=== PATIENT | female | born 1955 | race Two or more races ===

== ENCOUNTER → 2021-06-12 | Day surgery (SDC) | payer MEDICAID ==
[~2021-06-12] VITALS: Ht 167.6 cm; Wt 63.5 kg
[~2021-06-12] MED LIST: AMLO5TAB88 PO; ANAS1TAB49 PO; ASPI-1497 PO; BALANCED SALT IRRIG SOLN 15ML ONE; BALANCED SALT IRRIG SOLN COMB1 500ML OP NR; CIPROFLOXACIN 0.3% OPHTH SOLN 2.5ML ONE; CYCLOPENTOLATE HCL 1% OPHTH DROPS 2ML LEFTEYE ONE; CYCLOPENTOLATE HCL 1% OPHTH DROPS 2ML ONE; ERTU5TAB PO; FENTANYL CITRATE/PF 50MCG/ML 2ML VIAL ONE; FURO20TA4 PO; HYALURONATE SODIUM 10 MG/ML 0.55ML SYRINGE IO ONE; KETOROLAC 30MG/ML VIAL ONE; LIDOCAINE HCL/PF 2% 20 MG/ML 10ML VIAL ONE; METF-415 PO; MIDAZOLAM HCL 2 MG/2 ML VIAL ONE; NEO/POLYMYX B SULF/DEXAMETH OPHTH OINT 3.5GM ONE; PHENYLEPHRINE HCL 10% OPHTH DROPS 5ML LEFTEYE ONE; PHENYLEPHRINE HCL 10% OPHTH DROPS 5ML ONE; PREDNISOLONE ACETATE 1% OPHTH DROPS 5ML ONE; SIMV-43 PO; TETRACAINE 0.5% OPHTH DROPS 4ML ONE; TROPICAMIDE 1% OPHTH DROPS 15ML LEFTEYE ONE; TROPICAMIDE 1% OPHTH DROPS 15ML ONE
== END | disposition home or self-care (01) ==
LOC: OR 05:20
PROVIDERS: ATTEND Ophthalmology
DX: E11.36 Type 2 diabetes mellitus with diabetic cataract (principal); H25.89 Other age-related cataract; I10 Essential (primary) hypertension; E78.00 Pure hypercholesterolemia, unspecified; Z79.899 Other long term (current) drug therapy; Z98.890 Other specified postprocedural states; Z20.822 Contact with and (suspected) exposure to COVID-19; Z79.82 Long term (current) use of aspirin; Z79.84 Long term (current) use of oral hypoglycemic drugs
CPT/HCPCS: 66984; 82962; 87426; J1885; J2250; J3010; J3490; V2632